=== PATIENT | male | born 1950 | race Caucasian/White ===

== ENCOUNTER → 2016-09-21 | Outpatient (CLI) | payer OTHER ==
[~2016-09-21] MED LIST: /DULO30CA OR; /PANT40TA OR; /TAMS4CA OR; ACET65TA OR; AMIT10TA2 OR; AMLO10TA OR; ASPI81TA45 OR; CEFD300C OR; DIOV160T5 OR; DIOV80TA OR; MECL12.5 OR; METH750T OR; MULTIVIT PO; NABU500T OR; PLAV75TA2 OR; PROT20TA11 OR; SYMB80AE IN; TRAMPOW3 XX
== END ==
LOC: M LRY 13:11
PROVIDERS: ATTEND Urology
DX: N40.1 Benign prostatic hyperplasia with lower urinary tract symptoms (principal); Z12.5 Encounter for screening for malignant neoplasm of prostate
CPT/HCPCS: 36415; G0103

== ENCOUNTER → 2017-09-27 | Outpatient (CLI) | payer OTHER ==
[2017-09-27 16:48] LABS: PROSTATIC SPECIFIC AG MONITOR 0.19 NG/ML (< 4.0)
== END ==
LOC: M LRY 11:13
DX: R97.20 Elevated prostate specific antigen [PSA] (principal)
CPT/HCPCS: 84153

== ENCOUNTER → 2018-11-09 | Outpatient (CLI) | payer OTHER, MEDICARE ==
[~2018-11-09] MED LIST changes: -/DULO30CA OR; -/PANT40TA OR; -/TAMS4CA OR; +CYMB1CAP5 OR; +FLOM0.4C39 OR; +PROT1TAB2 OR
== END ==
LOC: M LRY 13:51
PROVIDERS: ATTEND Urology
DX: R97.20 Elevated prostate specific antigen [PSA] (principal)

== ENCOUNTER → 2019-02-18 | Outpatient (REF) | payer MEDICARE, OTHER ==
[2019-02-18 14:30] LABS: BASO % 0.3 % (0.0-1.0); EOS # 0.1 10^3/uL (0.0-0.50); EOS % 1.8 % (0.0-3.0); HEMATOCRIT 41.2 % (42.0-52.0); HEMOGLOBIN 13.9 g/dl (13.5-17.5); LYMPH # 1.2 10^3/uL (1.5-4.5); LYMPH % 19.4 % (24.0-44.0); MEAN CORPUSCULAR HEMOGLOBIN 30.2 pg (27.0-33.0); MEAN CORPUSCULAR HGB CONC 33.7 g/dl (32.0-36.5); MEAN CORPUSCULAR VOLUME 89.4 fl (80.0-96.0); MONO # 0.5 10^3/uL (0.0-0.8); MONO % 7.7 % (0.0-5.0); NEUTROPHILS # 4.3 10^3/uL (1.8-7.7); NEUTROPHILS % 70.5 % (36.0-66.0); PLATELET COUNT, AUTOMATED 218 10^3/uL (150-450); RED BLOOD COUNT 4.61 10^6/uL (4.30-6.10); WHITE BLOOD COUNT 6.1 10^3/uL (4.0-10.0)
[2019-02-18 14:42] LABS: ALBUMIN 4.2 GM/DL (3.2-5.2); ALT/SGPT 28 U/L (12-78); BILIRUBIN,TOTAL 0.5 MG/DL (0.2-1.0); BLOOD UREA NITROGEN 18 MG/DL (7-18); C REACTIVE PROTEIN QUANTITATIV < 0.30 MG/DL (0.00-0.30); CALCIUM LEVEL 9.2 MG/DL (8.8-10.2); CARBON DIOXIDE LEVEL 31 MEQ/L (21-32); CHLORIDE LEVEL 102 MEQ/L (98-107); CHOLESTEROL LEVEL 173 MG/DL (< 200); COMPLEMENT C3 102 MG/DL (90-180); COMPLEMENT C4 31 MG/DL (10-40); CPK CREATINE PHOSPHOKINASE 185 U/L (39-308); FREE T4 1.09 NG/DL (0.76-1.46); GLOMERULAR FILTRATION RATE > 60.0 (>49); GLUCOSE, FASTING 109 MG/DL (70-100); LDH LACTATE DEHYDROGENASE 220 U/L (87-241); PHOSPHORUS LEVEL 2.9 MG/DL (2.5-4.9); POTASSIUM SERUM 3.8 MEQ/L (3.5-5.1); RHEUMATOID FACTOR QUANT < 10.0 IU/ML (<15.0); SODIUM LEVEL 139 MEQ/L (136-145); THYROXINE (T4) 10.7 UG/DL (4.5-12.0); TOTAL PROTEIN 7.1 GM/DL (6.4-8.2); TRIGLYCERIDES LEVEL 120 MG/DL (<150)
[2019-02-18 14:43] LABS: TOTAL T3 140.2 NG/DL (60.0-181.0)
[2019-02-18 16:02] LABS: ERYTHROCYTE SEDIMENTATION RATE 10 mm/hr (0-20)
[2019-02-23 00:06] LABS: ANA (HEP2) Negative (.); ANCA-ATYPICAL <1:20 titer (Neg:<1:20); ANGIOTENSIN 1 CONVERTING ENZYM 28 U/L (14-82); COMPLEMENT TOTAL (CH50) > 60 U/mL (42-999999); CYTOPLASMIC NEUTROP AB ANCA-C <1:20 titer (Neg:<1:20); HLA-B27 Negative (.); Lyme Disease IgG/IgM Antibodie <0.91 ISR (0.00-0.90); Lyme Disease IgM Ab Quantitati <0.80 index (0.00-0.79); PERINUCLEAR AB ANCA-P <1:20 titer (Neg:<1:20); TREPONEMA ANTIBODY IgM <0.9 I.V. (.)
== END ==
LOC: M LABDRAW1 14:06
PROVIDERS: ATTEND Ophthalmology
DX: H16.223 Keratoconjunctivitis sicca, not specified as Sjogren's, bilateral (principal); Z79.899 Other long term (current) drug therapy

== ENCOUNTER → 2019-03-15 | Outpatient (CLI) | payer MEDICARE ==
--- NOTE | 2019-03-15 15:08 | REP ---
MRI of the brain without contrast Indication: History of TIA and cerebral infarction without residual disc deficits. Other seizures. Transient global amnesia. Comparison: MRI brain of 09/23/2011. Technique: MRI of the brain was performed without contrast utilizing sagittal T1 FLAIR, and axial DWI, T1, T2, GRE, and FLAIR imaging. Findings: There is no restricted diffusion to suggest acute ischemia or infarction. Evidence of chronic right occipital infarct is redemonstrated. There are minimal scattered due to hyperintensities within the periventricular subcortical white matter which are nonspecific but suggestive of microvascular ischemic disease in a patient this age, similar to prior. The ventricles and sulci are symmetric. There is no intra- or extra-axial fluid collection. There is no mass effect. There is no midline shift or basal cistern effacement. The visualized flow voids are preserved. There is T2 opacification of the posterior right ethmoid air cell and polypoid mucosal thickening of the maxillary sinuses, greater on the right. The visualized mastoid air cells are clear. Impression: No acute ischemia or infarction. Similar minimal white matter changes and chronic right occipital infarct. Polypoid mucosal thickening of the maxillary sinuses and opacification of the right posterior ethmoid air cell. Electronically Signed by Keven Lott MD 03/15/2019 02:59 P
--- NOTE | 2019-03-15 15:33 | REP ---
MRA of the brain without contrast Indication: Personal history of TIA. Comparison: MRA brain of 09/23/2011. Technique: 3D time of flight MR angiogram of the [place] was performed without contrast. MIP images of the vessels were obtained including tumble and spin MIP imaging. 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 There is antegrade flow within the distal ICAs and proximal MCAs and ACAs, the distal vertebral arteries, basilar artery and proximal adobe cq developer. The left ACCOUNT AUDITOR is larger caliber and greater signal intensity than the right and the distal right ACCOUNT AUDITOR is diminutive compared to the left, similar to prior. There is no evidence of cerebrovascular occlusion or aneurysmal formation. Impression: No acute cerebrovascular occlusion or aneurysmal formation. Diminutive the distal right ACCOUNT AUDITOR, corresponding known chronic right occipital infarct. Absence of the right A1 segment, anatomical variant. Electronically Signed by Keven Lott MD 03/15/2019 03:24 P
--- NOTE | 2019-03-15 15:40 | REP ---
MRA of the carotid arteries without contrast Indication: Personal history of TIA. Comparison: None Technique: 2-D [id number] imaging of the cervical carotid arteries was performed. MIP imaging of the carotid vessels was provided. No intravenous contrast was administered. Findings: There is motion artifact which degrades image quality and decreases the sensitivity for detection of small lesions. Within this limitation, there is two vessel aortic arch anatomy; there is common origin of the left common carotid and brachiocephalic arteries. The common carotid arteries, external carotid arteries and internal carotid arteries are patent. According to NASCET criteria, there is 0% stenosis of the common carotid arteries at the bifurcations. The origins of the vertebral arteries are not well seen. The visualized vertebral arteries are patent. Impression: Motion artifact degradation. Within this limitation, normal MRA of the carotid arteries without contrast. Electronically Signed by Keven Lott MD 03/15/2019 03:31 P
== END ==
LOC: M PLARAD 03-08 08:08
PROVIDERS: ATTEND Psychiatry & Neurology Neurology
DX: Z86.73 Personal history of transient ischemic attack (TIA), and cerebral infarction without residual deficits (principal); G45.9 Transient cerebral ischemic attack, unspecified; G40.89 Other seizures

== ENCOUNTER → 2020-02-22 | Outpatient (CLI) | payer MEDICARE ==
[2020-02-22 17:19] LABS: HEMATOCRIT 41.9 % (42.0-52.0); HEMOGLOBIN 14.2 g/dl (13.5-17.5)
[2020-02-22 17:32] LABS: ALBUMIN 4.1 GM/DL (3.2-5.2); THYROID STIMULATING HORMONE 1.7 uIU/ML (0.358-3.740)
[2020-02-22 18:02] LABS: HEMOGLOBIN A1c 5.6 %
== END ==
LOC: M WUC 13:20
PROVIDERS: ATTEND Orthopaedic Surgery
DX: Z01.812 Encounter for preprocedural laboratory examination (principal); Z79.899 Other long term (current) drug therapy

== ENCOUNTER → 2020-04-09 | Outpatient (CLI) | payer MEDICARE | LOC: M WUC 11:29 | PROVIDERS: ATTEND Nurse Practitioner | DX: R97.20 Elevated prostate specific antigen [PSA] (principal) ==

== ENCOUNTER → 2021-04-12 | Outpatient (CLI) | payer MEDICARE | LOC: M WUC 11:32 | PROVIDERS: ATTEND Nurse Practitioner | DX: N40.1 Benign prostatic hyperplasia with lower urinary tract symptoms (principal) ==

== ENCOUNTER → 2021-11-09 | Outpatient (CLI) | payer MEDICARE | LOC: M WUC 11:40 | PROVIDERS: ATTEND Psychiatry & Neurology Neurology | DX: M43.02 Spondylolysis, cervical region (principal); M43.06 Spondylolysis, lumbar region; M25.78 Osteophyte, vertebrae ==

== ENCOUNTER → 2021-12-09 | Outpatient (CLI) | payer MEDICARE ==
[~2021-12-09] MED LIST changes: +AMLO1TAB25 PO; +ASPI-255 PO; +DULO1CAP6 PO; +FINA5TAB2 PO; +LOSA100T5 PO; +MECL-136 PO; +MONT10TA97 PO; +PANT40TA29 PO; +SYMB80INH INH; +TAMS1CAP17 PO; +VENTAER INH; +VITMTA PO
== END ==
LOC: M LABSMTC 09:04
PROVIDERS: ATTEND Anesthesiology
DX: Z01.812 Encounter for preprocedural laboratory examination (principal)

== ENCOUNTER → 2021-12-09 | Outpatient (CLI) | payer MEDICARE | LOC: M EKG 09:52 | PROVIDERS: ATTEND Anesthesiology | DX: Z01.818 Encounter for other preprocedural examination (principal); R03.0 Elevated blood-pressure reading, without diagnosis of hypertension; K21.9 Gastro-esophageal reflux disease without esophagitis; F41.9 Anxiety disorder, unspecified; R00.0 Tachycardia, unspecified; I45.10 Unspecified right bundle-branch block; I49.1 Atrial premature depolarization; Z20.822 Contact with and (suspected) exposure to COVID-19 ==

== ENCOUNTER → 2022-01-20 | Outpatient (CLI) | payer MEDICARE ==
[~2022-01-20] MED LIST changes: +ECOT81TA5 PO
== END ==
LOC: M LABSMTC 09:29
PROVIDERS: ATTEND Anesthesiology
DX: Z01.818 Encounter for other preprocedural examination (principal); Z11.52 Encounter for screening for COVID-19

== ENCOUNTER 2022-01-25 06:54 | Day surgery (SDC) | payer MEDICARE ==
[~2022-01-25] VITALS: Ht 172.7 cm; Wt 112.4 kg
[~2022-01-25 06:54] MED LIST changes: +ceFAZolin SOD 2 GM in IV 1 EA IV ONE
[2022-01-25] MEDS ORDERED: MIDAZOLAM INJ 2MG/2ML VIAL (J2250 PER 1MG) As Ordered ONE (07:46)
[2022-01-25] MEDS ORDERED: fentaNYL 100 MCG/2 ML INJECTION As Ordered ONE (07:48)
[2022-01-25] MEDS ORDERED: LIDOCAINE 2% 100MG/5ML SDV (FOR ANES.) As Ordered ONE (07:50)
[2022-01-25] MEDS ORDERED: propofoL 200 MG/20 ML VIAL As Ordered ONE (07:50)
[2022-01-25] MEDS ORDERED: LR 1,000 ML IV SCH (08:00)
[2022-01-25] MEDS ORDERED: BUPIVACAINE/EPIN 0.25% 30 ML VIAL As Ordered ONE (08:07)
[2022-01-25] MEDS ORDERED: ONDANSETRON 4MG 2ML VIAL As Ordered ONE (08:30)
[2022-01-25] MEDS ORDERED: dexameTHASONE 4 MG/ML 1ML VIAL (J1100 PER 1MG) As Ordered ONE (08:30)
[2022-01-25 09:22] VITALS: BP 177/79
== END 2022-01-25 09:30 | disposition home or self-care (01) ==
LOC: M SDC 06:54
PROVIDERS: ATTEND Surgery
DX: D17.1 Benign lipomatous neoplasm of skin and subcutaneous tissue of trunk (principal); I10 Essential (primary) hypertension; J44.9 Chronic obstructive pulmonary disease, unspecified; F41.9 Anxiety disorder, unspecified; Z87.2 Personal history of diseases of the skin and subcutaneous tissue
CPT/HCPCS: 11404; 12032; 88304; J1100; J2250; J2405; J3010

== ENCOUNTER → 2022-04-12 | Outpatient (CLI) | payer MEDICARE ==
[~2022-04-12] MED LIST changes: -ceFAZolin SOD 2 GM in IV 1 EA IV ONE
== END ==
LOC: M WUC 11:23
PROVIDERS: ATTEND Nurse Practitioner
DX: N40.1 Benign prostatic hyperplasia with lower urinary tract symptoms (principal)

== ENCOUNTER → 2023-04-11 | Outpatient (REF) | payer MEDICARE | LOC: M WUC 16:19 | PROVIDERS: ATTEND Nurse Practitioner | DX: N40.1 Benign prostatic hyperplasia with lower urinary tract symptoms (principal); Z12.5 Encounter for screening for malignant neoplasm of prostate | CPT/HCPCS: 36415; G0103 ==

== ENCOUNTER → 2023-11-22 | Outpatient (CLI) | payer MEDICARE ==
[2023-11-22 12:11] LABS: HEMATOCRIT 41.9 % (42.0-52.0); HEMOGLOBIN 14.2 g/dl (13.5-17.5); MEAN CORPUSCULAR HEMOGLOBIN 30.7 pg (27.0-33.0); MEAN CORPUSCULAR HGB CONC 33.9 g/dl (32.0-36.5); MEAN CORPUSCULAR VOLUME 90.5 fl (80.0-96.0); PLATELET COUNT, AUTOMATED 253 10^3/uL (150-450); RED BLOOD COUNT 4.63 10^6/uL (4.30-6.10)
[2023-11-22 12:47] LABS: ALKALINE PHOSPHATASE 85 U/L (46-116); ALT/SGPT 28 U/L (7.0-40); AST/SGOT 19 U/L (<34); BILIRUBIN,TOTAL 0.5 MG/DL (0.3-1.2); BLOOD UREA NITROGEN 17 MG/DL (9-23); CALCIUM LEVEL 9.6 MG/DL (8.3-10.6); CARBON DIOXIDE LEVEL 31 MMOL/L (20-31); CHLORIDE LEVEL 110 MMOL/L (98-107); CHOLESTEROL LEVEL 183 MG/DL (<200); CHOLESTEROL RISK RATIO 2.91 (<5); GLOMERULAR FILTRATION RATE > 60.0 (>42); GLUCOSE, FASTING 110 MG/DL (74-106); HDL CHOLESTEROL 62.7 MG/DL (>40); LDL CHOLESTEROL 102.3 MG/DL (<100); NON-HDL-C 120.3 MG/DL; POTASSIUM SERUM 3.7 MMOL/L (3.5-5.1); SODIUM LEVEL 145 MMOL/L (136-145); THYROID STIMULATING HORMONE 1.553 uIU/ML (0.55-4.78); TOTAL PROTEIN 6.7 G/DL (5.7-8.2); TRIGLYCERIDES LEVEL 90 MG/DL (<150)
[2023-11-29 07:51] LABS: WHITE BLOOD COUNT 6.9 10^3/uL (4.0-10.0)
== END ==
LOC: M WUC 09:45
PROVIDERS: ATTEND Physician Assistant
DX: I10 Essential (primary) hypertension (principal); E78.5 Hyperlipidemia, unspecified

== ENCOUNTER → 2024-02-07 | Outpatient (CLI) | payer MEDICARE | LOC: M WUC 10:20 | PROVIDERS: ATTEND Physician Assistant | DX: M25.512 Pain in left shoulder (principal); M25.511 Pain in right shoulder; M13.0 Polyarthritis, unspecified ==

== ENCOUNTER → 2024-04-05 | Outpatient (CLI) | payer MEDICARE | LOC: M WUC 11:08 | PROVIDERS: ATTEND Physician Assistant | DX: J45.40 Moderate persistent asthma, uncomplicated (principal); G47.33 Obstructive sleep apnea (adult) (pediatric) ==

== ENCOUNTER → 2024-04-10 | Outpatient (REF) | payer MEDICARE | LOC: M LAB REF 16:13 → M LABWUC 16:13 | PROVIDERS: ATTEND Nurse Practitioner | DX: N40.1 Benign prostatic hyperplasia with lower urinary tract symptoms (principal) ==

== ENCOUNTER → 2024-05-24 | Outpatient (CLI) | payer MEDICARE ==
[2024-05-24 17:14] LABS: HEMATOCRIT 38.8 % (42.0-52.0); HEMOGLOBIN 13.1 g/dl (13.5-17.5); MEAN CORPUSCULAR HEMOGLOBIN 31.1 pg (27.0-33.0); MEAN CORPUSCULAR HGB CONC 33.8 g/dl (32.0-36.5); MEAN CORPUSCULAR VOLUME 92.2 fl (80.0-96.0); PLATELET COUNT, AUTOMATED 276 10^3/uL (150-450); RED BLOOD COUNT 4.21 10^6/uL (4.30-6.10)
[2024-05-24 17:42] LABS: HEMOGLOBIN A1c 5.8 % (4.0-6.0)
[2024-05-24 17:48] LABS: THYROID STIMULATING HORMONE 1.781 uIU/ML (0.55-4.78)
[2024-05-24 17:49] LABS: ALBUMIN 3.8 G/DL (3.2-5.2); ALKALINE PHOSPHATASE 97 U/L (40-129); ALT/SGPT 23 U/L (7.0-40); AST/SGOT 17 U/L (<34); BILIRUBIN,TOTAL 0.4 MG/DL (0.3-1.2); BLOOD UREA NITROGEN 14 MG/DL (9-23); CALCIUM LEVEL 9.8 MG/DL (8.3-10.6); CARBON DIOXIDE LEVEL 28 MMOL/L (20-31); CHLORIDE LEVEL 106 MMOL/L (98-107); CHOLESTEROL LEVEL 209 MG/DL (<200); CREATININE FOR GFR 0.97 MG/DL (0.70-1.30); GLOMERULAR FILTRATION RATE > 60.0 (>42); GLUCOSE, FASTING 111 MG/DL (74-106); LDL CHOLESTEROL 130.6 MG/DL (<100); POTASSIUM SERUM 3.6 MMOL/L (3.5-5.1); SODIUM LEVEL 142 MMOL/L (136-145); TOTAL PROTEIN 6.7 G/DL (5.7-8.2); TRIGLYCERIDES LEVEL 102 MG/DL (<150)
[2024-05-27 07:47] LABS: WHITE BLOOD COUNT 8.5 10^3/uL (4.0-10.0)
== END ==
LOC: M WUC 11:12
PROVIDERS: ATTEND Physician Assistant
DX: I10 Essential (primary) hypertension (principal); E78.5 Hyperlipidemia, unspecified; R73.01 Impaired fasting glucose

== ENCOUNTER → 2024-06-06 | Outpatient (CLI) | payer MEDICARE ==
[~2024-06-06] MED LIST changes: +METHACHOLINE KIT (6 VIAL.NEB PREMIX) INH ONE
== END ==
LOC: M CARPUL 06:46
PROVIDERS: ATTEND Nurse Practitioner Adult Health
DX: R06.02 Shortness of breath (principal)

== ENCOUNTER → 2024-06-06 | Outpatient (CLI) | payer MEDICARE ==
[~2024-06-06] MED LIST changes: -METHACHOLINE KIT (6 VIAL.NEB PREMIX) INH ONE
== END ==
LOC: M RAD 06:48
PROVIDERS: ATTEND Nurse Practitioner Adult Health
DX: R06.02 Shortness of breath (principal)
CPT/HCPCS: 71250; 94070; 95070; J7674

== ENCOUNTER → 2024-11-07 | Outpatient (CLI) | payer MEDICARE ==
[2024-11-07 13:51] LABS: APPEARANCE, URINE CLEAR (CLEAR); BACTERIA, URINE AUTO NEGATIVE (NEGATIVE); BILIRUBIN, URINE AUTO NEGATIVE (NEGATIVE); BLOOD, URINE BLOOD NEGATIVE (NEGATIVE); COLOR, URINE YELLOW (YELLOW); GLUCOSE, URINE (UA) AUTO NEGATIVE (NEGATIVE); KETONE, URINE AUTO NEGATIVE (NEGATIVE); LEUKOCYTE ESTERASE, URINE AUTO NEGATIVE (NEGATIVE); NITRITE, URINE AUTO NEGATIVE (NEGATIVE); PROTEIN, URINE AUTO NEGATIVE (NEGATIVE); RBC, URINE AUTO 1 /HPF (0-3); SPECIFIC GRAVITY URINE AUTO 1.015 (1.002-1.035); SQUAMOUS EPITHELIAL CELL UR AU 0 /HPF (0-6); UROBILINOGEN, URINE AUTO 0.2 mg/dL (0.0-2.0); WBC, URINE AUTO 1 /HPF (0-3)
[2024-11-07 13:57] LABS: PROSTATIC SPECIFIC AG MONITOR 0.21 NG/ML (< 4.00)
[2024-11-07 14:01] LABS: THYROID STIMULATING HORMONE 1.831 uIU/ML (0.55-4.78)
[2024-11-07 14:04] LABS: BILIRUBIN,TOTAL 0.5 MG/DL (0.3-1.2); CALCIUM LEVEL 9.4 MG/DL (8.3-10.6); CHOLESTEROL RISK RATIO 2.62 (<5); CREATININE FOR GFR 0.89 MG/DL (0.70-1.30); GLOMERULAR FILTRATION RATE 89.9 (>42); HDL CHOLESTEROL 56.4 MG/DL (>40); LDL CHOLESTEROL 67.6 MG/DL (<100); NON-HDL-C 91.6 MG/DL; POTASSIUM SERUM 3.8 MMOL/L (3.5-5.1); TOTAL PROTEIN 7.1 G/DL (5.7-8.2)
[2024-11-07 14:05] LABS: HEMATOCRIT 40.9 % (42.0-52.0); HEMOGLOBIN 13.9 g/dl (13.5-17.5); MEAN CORPUSCULAR HEMOGLOBIN 30.8 pg (27.0-33.0); MEAN CORPUSCULAR VOLUME 90.5 fl (80.0-96.0); PLATELET COUNT, AUTOMATED 203 10^3/uL (150-450); RED BLOOD COUNT 4.52 10^6/uL (4.30-6.10)
[2024-11-08 11:40] LABS: WHITE BLOOD COUNT 7.8 10^3/uL (4.0-10.0)
[2024-11-08 15:34] LABS: HEMOGLOBIN A1c 5.6 % (4.0-6.0)
== END ==
LOC: M WUC 11:02
PROVIDERS: ATTEND Physician Assistant
DX: I10 Essential (primary) hypertension (principal); E78.5 Hyperlipidemia, unspecified; Z12.5 Encounter for screening for malignant neoplasm of prostate; R35.1 Nocturia; R73.01 Impaired fasting glucose; M25.572 Pain in left ankle and joints of left foot; M25.571 Pain in right ankle and joints of right foot; M79.89 Other specified soft tissue disorders; M19.071 Primary osteoarthritis, right ankle and foot; M19.072 Primary osteoarthritis, left ankle and foot

== ENCOUNTER 2025-03-12 11:02 | Day surgery (SDC) | payer MEDICARE ==
[~2025-03-12] VITALS: Ht 172.7 cm; Wt 71.1 kg
[~2025-03-12 11:02] MED LIST changes: +THERTAB52 PO
[2025-03-12] MEDS ORDERED: LIDOCAINE 2% 100 MG/5 ML SDV (FOR ANES.) As Ordered ONE (12:54)
[2025-03-12 13:11] VITALS: TEMP 97.5
[2025-03-12 13:26] VITALS: BP 164/85; O2SAT 98
== END 2025-03-12 13:38 | disposition home or self-care (01) ==
LOC: M OPP 11:02
PROVIDERS: ATTEND Surgery
DX: Z12.11 Encounter for screening for malignant neoplasm of colon (principal); K64.0 First degree hemorrhoids; K57.30 Diverticulosis of large intestine without perforation or abscess without bleeding; K44.9 Diaphragmatic hernia without obstruction or gangrene; K31.7 Polyp of stomach and duodenum; K29.70 Gastritis, unspecified, without bleeding; R10.13 Epigastric pain; G47.30 Sleep apnea, unspecified; Z88.1 Allergy status to other antibiotic agents; Z88.5 Allergy status to narcotic agent; Z88.8 Allergy status to other drugs, medicaments and biological substances; Z79.82 Long term (current) use of aspirin; Z79.899 Other long term (current) drug therapy
CPT/HCPCS: 43239; 88305; G0121